=== PATIENT | male | born 1950 | race Caucasian/White ===

== ENCOUNTER 2018-04-23 06:57 | Day surgery (SDC) | payer MEDICARE, BC ==
[~2018-04-23] VITALS: Ht 177.8 cm; Wt 90.0 kg
[2018-04-23] MEDS ORDERED: LACTATED RINGERS 1,000 ML IV SCH (07:49)
[2018-04-23] MEDS ORDERED: OMEP40CA6 PO (07:52)
[2018-04-23] MEDS ORDERED: LISI30TA4 PO (07:52)
[2018-04-23] MEDS ORDERED: ATOR40TA78 PO (07:52)
[2018-04-23] MEDS ORDERED: ASPI-496 PO (07:52)
[2018-04-23 08:22] VITALS: BP 159/92
[2018-04-23] MEDS ORDERED: METOPROLOL 1 MG/ML, 5ML IV PRN (08:30)
[2018-04-23] MEDS ORDERED: hydrALAzine 20 MG/ML, 1ML IV PRN (08:30)
[2018-04-23] MEDS ORDERED: DIPHENHYDRAMINE 50 MG/ML, 1ML IVPush PRN (08:30)
[2018-04-23] MEDS ORDERED: FENTANYL PF 100 MCG/2ML IV PRN (08:30)
[2018-04-23] MEDS ORDERED: LABETALOL 5MG/ML, 20ML IV PRN (08:30)
[2018-04-23] MEDS ORDERED: PROMETHAZINE 25 MG/ML, 1ML IV PRN (08:30)
[2018-04-23] MEDS ORDERED: PROCHLORPERAZINE 5 MG/ML, 2ML IV PRN (08:30)
[2018-04-23] MEDS ORDERED: MEPERIDINE/PF 25MG/0.5ML IVPush PRN (08:30)
[2018-04-23 08:32] LABS: ALANINE AMINOTRANSFERASE 29 U/L (12-78); ALBUMIN 3.8 g/dL (3.4-5.0); ANION GAP 7 mmol/L (5-15); CALCIUM 9.1 mg/dL (8.5-10.1); CHLORIDE 105 mmol/L (98-107); CREATININE 1.11 mg/dL (0.7-1.3)
[2018-04-23 08:35] LABS: ALKALINE PHOSPHATASE 94 U/L (45-117); BILIRUBIN,TOTAL 0.7 mg/dL (0.2-1.0); TOTAL PROTEIN 7.8 g/dL (6.4-8.2)
[2018-04-23] MEDS ORDERED: PROPOFOL 10 MG/ML, 20ML ONE (09:39)
[2018-04-23] MEDS ORDERED: METHYLENE BLUE 10 MG/ML 10ML ONE (09:45)
[2018-04-23] MEDS ORDERED: MIDAZOLAM 1 MG/ML, 2ML ONE (09:53)
== END 2018-04-23 11:45 | disposition home or self-care (01) ==
LOC: OUT 06:57
PROVIDERS: ATTEND Internal Medicine Geriatric Medicine
DX: K31.7 Polyp of stomach and duodenum (principal); K44.9 Diaphragmatic hernia without obstruction or gangrene; K21.9 Gastro-esophageal reflux disease without esophagitis; K22.70 Barrett's esophagus without dysplasia; I10 Essential (primary) hypertension; E78.5 Hyperlipidemia, unspecified; F10.21 Alcohol dependence, in remission; Z98.890 Other specified postprocedural states
CPT/HCPCS: 36415; 43239; 80053; 88305; 93005; J2250; J2704; J7120; Q9968

== ENCOUNTER 2018-08-16 07:37 | Emergency (ER) | payer MEDICARE, BC ==
[~2018-08-16] VITALS: Ht 177.8 cm; Wt 87.0 kg
[~2018-08-16 07:37] MED LIST: ASPI-496 PO; ATOR40TA78 PO; LISI30TA4 PO; OMEP40CA6 PO
--- NOTE | 2018-08-16 08:16 | NUR ---
Pt assessed, c/o SOB for past few days and high BP. Denies CP. Pt reports daily ETOH, last drink was Sunday. Dr. Horton at BS. Call light within reach, will cont to monitor.
--- NOTE | 2018-08-16 08:59 | NUR ---
BREAK RN FOR PRIMARY RN'S CATALINA. PT RESTING IN POSITION OF COMFORT. LAB AT BEDSIDE. SR ON MONITOR, DENIES ANY PAIN OR CP. BP IMPROVED. PT REPORTS "STILL FEEL A LITTLE LIGHTHEADED BUT NOT BAD, BETTER." DISCUSSED VITALS AND PT SYMPTOMS WITH DR. MERAZ, AWARE, NO NEW ORDERS RECEIVED. AWAITING RESULTS. FALL PRECAUTIONS IN PLACE. CALL LIGHT IN REACH.
[2018-08-16 09:05] LABS: BASOPHILS # (AUTO) 0.02 x10^3/uL (0-0.1); BASOPHILS % (AUTO) 1 % (0-1); EOSINOPHILS # (AUTO) 0.22 x10^3/uL (0-0.4); EOSINOPHILS % (AUTO) 5 % (1-7); LYMPHOCYTES # (AUTO) 0.63 x10^3/uL (1-3.4); LYMPHOCYTES % (AUTO) 14 % (22-44); MD NO; MEAN CORPUSCULAR HEMOGLOBIN 32.6 pg (27.5-34.5); MEAN CORPUSCULAR HGB CONC 35.1 g/dL (33.2-36.2); MEAN CORPUSCULAR VOLUME 92.7 fL (81-97); MEAN PLATELET VOLUME 6.6 fL (7.4-10.4); MONOCYTES # (AUTO) 0.39 x10^3/uL (0.2-0.8); MONOCYTES % (AUTO) 8 % (2-9); NEUTROPHILS # (AUTO) 3.42 x10^3/uL (1.8-6.8); NEUTROPHILS % (AUTO) 73 % (42-75); PLATELET COUNT 258 x10^3/uL (130-400); RED BLOOD COUNT 3.84 x10^6/uL (4.38-5.82)
--- NOTE | 2018-08-16 09:16 | NUR ---
REPORT AND CARE BACK TO PRIMARY RN'S JESSE.
[2018-08-16 09:23] LABS: ALBUMIN 3.4 g/dL (3.4-5.0); ANION GAP 3 mmol/L (5-15); CALCIUM 8.7 mg/dL (8.5-10.1); CHLORIDE 111 mmol/L (98-107)
--- NOTE | 2018-08-16 09:25 | NUR ---
Resumed care of patient, report from Magy AUSTIN
[2018-08-16 09:28] LABS: ALANINE AMINOTRANSFERASE 29 U/L (12-78); ALKALINE PHOSPHATASE 69 U/L (45-117); BILIRUBIN,TOTAL 0.5 mg/dL (0.2-1.0); CREATININE 0.99 mg/dL (0.7-1.3); TROPONIN I < 0.015 ng/mL (0.000-0.045)
[2018-08-16 10:30] VITALS: BP 139/89
== END 2018-08-16 10:35 | disposition home or self-care (01) ==
LOC: ED 08:04
DX: I10 Essential (primary) hypertension (principal); R06.00 Dyspnea, unspecified
CPT/HCPCS: 36415; 71045; 80053; 84484; 85025; 93005; 99284